=== PATIENT | male | born 1980 | race American Indian/Alaskan Native ===

== ENCOUNTER 2016-10-08 11:41 | Emergency (ER) | payer SELFPAY ==
[2016-10-08 12:01] VITALS: BP 148/97
[2016-10-08] MEDS ORDERED: MOTRIN PO ONE (13:07)
--- NOTE | 2016-10-08 13:11 | Emergency Department Report ---
Minor Respiratory - HPI Chief Complaint: Upper Respiratory Infection Stated Complaint: FLU SYMPTOMS Time Seen by Provider: 10/08/16 13:06 Duration: 1 Day Pain Location: Throat Severity: moderate Minor Respiratory: Yes Rhinorrhea, Yes Sore Throat, Yes Able to Tolerate Fluids , Yes Cough, Yes Sick Contacts, Yes Fever, No Ear Pain, No Hemoptysis, No Chest Pain, No Shortness of Breath Other History: Pt reports congestion, sore throat, cough, chills, fever to 102, myalgias since yesterday. Denies v/d. ED Review of Systems ROS: Stated complaint: FLU SYMPTOMS Other details as noted in HPI Constitutional: chills, fever Eyes: denies: eye pain, eye discharge, vision change ENT: throat pain, congestion. denies: ear pain Respiratory: cough. denies: shortness of breath, wheezing Cardiovascular: denies: chest pain, palpitations Endocrine: no symptoms reported Gastrointestinal: denies: abdominal pain, nausea, diarrhea Genitourinary: denies: urgency, dysuria Musculoskeletal: myalgia. denies: back pain, joint swelling, arthralgia Skin: denies: rash, lesions Neurological: denies: headache, weakness, paresthesias Psychiatric: denies: anxiety, depression Hematological/Lymphatic: denies: easy bleeding, easy bruising ED Past Medical Hx - Past Medical History Previous Medical History?: No - Surgical History Past Surgical History?: No - Social History Smoking Status: Never Smoker Substance Use Type: None - Medications Home Medications: Home Medications Medication Instructions Recorded Confirmed Last Taken Type Amoxicillin/K Clav Tab [Augmentin 1 tab PO Q12HR #20 tab 07/03/16 Unknown Rx 875 mg] Fluticasone [Flonase] 2 spray NS QDAY #1 bottle 07/03/16 Unknown Rx Loratadine/Pseudoephedrine 1 tab PO Q12H #30 tablet 07/03/16 Unknown Rx [Claritin-D 12HR] Ciprofloxacin HCl [Ciprofloxacin 500 mg PO Q12H #14 tab 08/12/16 Unknown Rx TAB] Ibuprofen [Motrin] 800 mg PO Q8HR PRN #15 tablet 10/08/16 Unknown Rx Oseltamivir [Tamiflu] 75 mg PO BID #10 cap 10/08/16 Unknown Rx Minor Respiratory Exam - Exam General: Vital signs noted. No distress. Alert and acting appropriately. HEENT: Yes Pharyngeal Erythema, Yes Moist Mucous Membranes, No Pharyngeal Exudates, No Rhinorrhea, No Conjuctival Injection, No Frontal Tenderness, No Maxillary Tenderness Ear: Neither TM Bulge, Neither TM Erythema, Neither EAC Pain, Neither EAC Discharge Neck: Yes Supple, No Adenopathy Lungs: Yes Good Air Exchange, No Wheezes, No Ronchi, No Stridor, No Cough, No Labored Respirations, No Retractions, No Use of Accessory Muscles, No Other Abnormal Lung Sounds Heart: Yes Regular, No Murmur Abdomen: Yes Normal Bowel Sounds, No Tenderness, No Peritoneal Signs Skin: No Rash, No Edema Neurologic: Alert and oriented, no deficits. Musculoskeletal: Unremarkable. ED Course Vital Signs 10/08/16 11:58 Temperature 99.4 F Pulse Rate 103 H Respiratory 18 Rate Blood Pressure 148/97 O2 Sat by Pulse 100 Oximetry - Reevaluation(s) Reevaluation #1: 10/08/16 13:08 NAD, stable for d/c. ED Medical Decision Making - Medical Decision Making Pt with influenza symptoms. Will give Tamiflu and have him follow up in 3-4 days with PCP. - Differential Diagnosis flu, strep, pna Critical care attestation.: If time is entered above; I have spent that time in minutes in the direct care of this critically ill patient, excluding procedure time. ED Disposition Clinical Impression: Influenza Disposition: DISCHARGED TO HOME OR SELFCARE Is pt being admited?: No Condition: Good Instructions: Influenza (ED) Prescriptions: Ibuprofen [Motrin] 800 mg PO Q8HR PRN #15 tablet PRN Reason: Pain Oseltamivir [Tamiflu] 75 mg PO BID #10 cap Forms: Work/School Release Form(ED) Time of Disposition: 13:10
== END 2016-10-08 13:20 | disposition home or self-care (01) ==
LOC: ED 11:41
DX: J11.1 Influenza due to unidentified influenza virus with other respiratory manifestations (principal)
CPT/HCPCS: 99282